=== PATIENT | female | born 1940 | race African-American/Black ===

== ENCOUNTER 2019-08-11 05:36 | Observation (INO) | payer MEDICARE, OTHER ==
[2019-08-07 13:02] LABS: BASOPHILS % 0.4 % (0.0-1.0); EOSINOPHILS # (AUTO) 0.2 (0.0-0.4); EOSINOPHILS % 4.9 % (0.0-6.0); HEMATOCRIT 39.9 % (34.2-44.1); LYMPHOCYTES # (AUTO) 1.8 (1.0-3.2); LYMPHOCYTES % 36.1 % (18.0-39.1); MEAN CORPUSCULAR HEMOGLOBIN 29.7 pg (28-32); MEAN CORPUSCULAR HGB CONC 32.6 g/dL (31-35); MEAN CORPUSCULAR VOLUME 91.3 fL (81-99); MONOCYTES # (AUTO) 0.5 (0.2-0.8); MONOCYTES % 10.3 % (4.4-11.3); NEUTROPHILS # (AUTO) 2.3 (2.1-6.9); NEUTROPHILS % 48.1 % (38.7-80.0); PLATELET COUNT 248 x10e3/uL (140-360); RED BLOOD COUNT 4.37 x10e6/uL (3.6-5.1); RED CELL DISTRIBUTION WIDTH 12.9 % (11.7-14.4)
[2019-08-07 13:21] LABS: ALANINE AMINOTRANSFERASE 17 IU/L (0-55); ALBUMIN 3.8 g/dL (3.5-5.0); ALBUMIN/GLOBULIN RATIO 1.1 (0.8-2.0); ALKALINE PHOSPHATASE 79 IU/L (40-150); ANION GAP 10.8 mmol/L (8-16); BLOOD UREA NITROGEN 21 mg/dL (7-26); BUN/CREATININE RATIO 26 (6-25); CALCIUM 9.6 mg/dL (8.4-10.2); CARBON DIOXIDE 25 mmol/L (22-29); CHLORIDE 108 mmol/L (98-107); EST GLOMERULAR FILTRATION RATE > 60 ML/MIN (60-); GLUCOSE 76 mg/dL (74-118); POTASSIUM 3.8 mmol/L (3.5-5.1); SODIUM 140 mmol/L (136-145)
--- NOTE | 2019-08-07 14:00 | Diagnostic Imaging Report ---
X-ray chest PA lateral Comparison: None History: Preop Findings: Cardiomediastinal silhouettes are normal. Lung aguila are normal. There is no pleural effusion or pneumothorax. Visualized skeletal structures are grossly unremarkable. Upper abdomen and other extrathoracic soft tissues unremarkable. Impression: No acute cardiopulmonary disease. Signed by: Gigi De Santiago MD on 08/07/2019 1:56 PM
[~2019-08-11] VITALS: Ht 165.1 cm; Wt 69.4 kg
[2019-08-11] MEDS ORDERED: CEFAZOLIN SOD 1 GM/NS 50ML 100 ML IV ONE (05:57)
[2019-08-11] MEDS ORDERED: ESTROGENS CONJUGATED VAGINAL CR 45 GM TUBE PV ONE (07:32)
[2019-08-11] MEDS ORDERED: BUPIVACAINE 0.25%/EPI 30ML SDV INJ ONE (07:35)
[2019-08-11] MEDS ORDERED: SUGAMMADEX SODIUM 200 MG/2 ML VIAL IV ONE (09:11)
[2019-08-11] MEDS ORDERED: FENTANYL CITRATE/PF 100MCG/2 ML INJ ONE (10:10)
[2019-08-11] MEDS ORDERED: BISACODYL 5 MG TAB EC PO PRN (10:30)
[2019-08-11] MEDS ORDERED: MEPERIDINE HCL INJ 25 MG/ML VIAL IV PRN (10:30)
[2019-08-11] MEDS ORDERED: DIPHENHYDRAMINE HCL 25 MG CAP PO PRN (10:30)
[2019-08-11] MEDS ORDERED: ACETAMINOPHEN 325 MG TAB PO PRN (10:30)
[2019-08-11] MEDS ORDERED: SIMETHICONE 80 MG CHEW PO PRN (10:30)
[2019-08-11] MEDS ORDERED: PROMETHAZINE HCL (IM) 25 MG/ML VIAL IM PRN (10:30)
[2019-08-11] MEDS ORDERED: BISACODYL 10 MG SUPP PR PRN (10:30)
[2019-08-11 11:01] VITALS: BP 126/67
--- NOTE | 2019-08-11 11:01 | NUR ---
Patient arrived to the unit from recovery @ 1101 via stretcher. Patient in stable condition, no s/s of distress noted. Daughter at bedside. Fuentes 16Fr draining pale yellow urine to the bag. IV fluids infusing, Site asymptomatic and patent. Dermabond to the lower labia vaginal packing in place. Bed in lowest position and locked. Call light within reach.
--- OUTSIDE RECORDS SUMMARY | 2019-08-11 11:04 | XMS REPORT | Continuity of Care Document ---
Author Author [facility] t Organization [facility] Address [address] [place] [address] Phone Unavailable Care Team Providers Care Vocational Rehabilitation Counselor Name Role Phone EDNA BORREGO Unavailable Payers Payer Name Policy Type Policy Number Effective Date Expiration Date S ource Problems This patient has no known problems. Allergies, Adverse Reactions, Alerts Allergy Name Allergy Type Status Severity Reaction(s) Onset Date Inacti ve Date Treating Clinician Comments Source No Known Allergies DA Active U 2014-06-23 00:00:00 [facility] Medications This patient has no known medications. Procedures This patient has no known procedures. Results Test Description Test Time Test Comments Results Result Comments Source CHEST 2 VIEWS 2019-08-07 13:56:00 [facility] [address] [place], [place] [address] Patient Name: ARTHUR MACKENZIE MR #: [id number] : 1940 Age/Sex: 79/F Req #: [id number] Adm Physician: Ordered by: EDNA BORREGO MD Report #: [id number] Location: OR Room/Bed: Procedure: [id number] DX/CHEST 2 VIEWS Exam Date: 08/07/19 Exam Time: 1140 REPORT STATUS: Signed X-ray chest PA lateral Comparison: None History: Preop Findings: Cardiomediastinal silhouettes are normal. Lung aguila are normal. There is no pleural effusion or pneumothorax. Visualized skeletal structures are grossly unremarkable. Upper abdomen and ot her extrathoracic soft tissues unremarkable. Impression: No acute cardiopulmonary disease. Signed by: Maritza Patel MD on 08/07/2019 1:56 PM Dictated By: MARITZA PATEL MD [id number] Transcribed By: AUDREY on 08/07/19 1356 COPY TO: EDNA BORREGO MD
[2019-08-11 11:12] VITALS: BP 126/67
[2019-08-11 11:33] VITALS: BP 126/67
[2019-08-11] MEDS: LACTATED RINGER'S 1,000 ML IV SCH ×2 (13:06→22:10)
[2019-08-11] MEDS ORDERED: LABETALOL HCL 5 MG/ML 20ML VIAL ONE (14:20)
[2019-08-11] MEDS ORDERED: ACETAMINOPHEN 1000 MG/100 ML IV ONE (14:20)
[2019-08-11] MEDS ORDERED: ETOMIDATE 2 MG/ML 10 ML INJ IV ONE (14:20)
[2019-08-11] MEDS ORDERED: SEVOFLURANE INHAL SOLN 250 ML PEN BTL ONE (14:20)
[2019-08-11] MEDS ORDERED: ONDANSETRON HCL INJ 2MG/ML 2ML 2 MG/ML VIAL ONE (14:20)
[2019-08-11] MEDS ORDERED: PROPOFOL IV EMULSION 10 MG/ML 20 ML VIAL ONE (14:20)
[2019-08-11] MEDS ORDERED: LIDOCAINE HCL 2% LOCAL INJ 5 ML SDV VIAL INJ ONE (14:20)
[2019-08-11] MEDS ORDERED: DEXAMETHASONE SOD PHOS INJ 4 MG/ML VIAL ONE (14:20)
--- NOTE | 2019-08-11 15:09 | Operative Report ---
DATE OF PROCEDURE: SURGEON: Chely Denise MD PREOPERATIVE DIAGNOSIS: Uterovaginal prolapse. POSTOPERATIVE DIAGNOSIS: Uterovaginal prolapse. PROCEDURES: Anterior repair, posterior repair, sacrospinous colpopexy, transobturator tape and cystoscopy. STATION HELPER: Dr. Higgins. COMPLICATIONS: None. ESTIMATED BLOOD LOSS: 20 mL. DESCRIPTION OF PROCEDURE: The patient was taken to the OR. General anesthesia was induced. She was prepped and draped in a normal sterile fashion, placed in dorsal lithotomy position. Examination under anesthesia revealed prolapse of the vagina and the vaginal apex. There was no uterus felt under examination. Two Allis clamps applied at the vaginal apex and a transverse skin incision was made with a scalpel and the bladder was dissected off the vagina using Metzenbaum scissors and the anterior wall of the vagina was opened with the same instrument. Two flaps of vagina dissected off underlying muscles using both sharp and blunt dissection. Following this, the bladder was dissected off the vagina using both Metzenbaum scissors and gentle pushes of index finger over swap of Ray-Khang wrapped on the index finger. Following this, pelvic fascia was pierced with the index fingers, ischial spine and sacrospinous was palpated and a Vicryl suture on the Capio needle nunez was applied on the sacrospinous ligament and the other end was brought outside the wound. The same was repeated on the other side of the pelvis and the other sutures was also brought out from the hitched to the vaginal apex. The pubocervical ligaments on each side were approximated using Vicryl 0 sutures, excess vaginal skin was trimmed off using with curved Flores scissors. The vagina was closed with interlocking stitches of Vicryl 0. Following this, the correct procedure was performed with two Allis clamps applied to the mucocutaneous junction about 1 cm from the fourchette on each side. The mucocutaneous junction between the two Allis clamp was excised using curved Flores scissors. The vagina was dissected off the perineum and the posterior wall using Metzenbaum scissors and opened in the midline. Two flaps of vagina dissected off underlying muscles using both sharp and blunt dissection. A Vicryl sutures were used to approximate the levator ani. Excess vaginal skin was trimmed off using curved Flores scissors and the vagina was closed with Vicryl 2-0 sutures. Attention was made to the transobturator tape and Fuentes catheter was placed inside the bladder to florinda the UVJ. The vagina anteriorly between the two Allis clamps at the UVJ and the external urethral meatus was injected with Marcaine with epinephrine 0.25% about 10 mL. The vagina was opened at the level of the mid urethra and the vagina was dissected off the urethra using Metzenbaum scissors using the push spread technique towards the inferior pubic ramus. Stab wounds were made in each side of the pelvis at the level of the external urethral meatus in the intercrural line and using the [employer] the trocar was inserted into the entry points, the tip was felt with the index finger just below the inferior pubic ramus and followed to the outside of the wound. Transobturator tape was applied on the trocar, and the trocar was withdrawn. The same was repeated on the other side and a TOT was laid down flat at the level of the mid urethra. The plastic cover was removed and cystoscopy was performed, showed normal bladder and urethra. The vagina was closed with interlocking stitches of Vicryl 0 and excess tape was excised at the entry points, and the entry points were approximated using Dermabond. Vaginal pack and Fuentes catheter were inserted again inside the bladder. The patient tolerated the procedure well. Lap, instruments, and needle counts were correct x2 at the end of the procedure. Chely Denise MD DD/AG /[id number]
[2019-08-11] MEDS: HYDROCODONE/APAP 5MG-325MG TAB PO PRN (16:07)
[2019-08-11 16:35] VITALS: BP 114/85
--- NOTE | 2019-08-11 18:42 | NUR ---
Removed the vaginal packing the patient tolerated removal no s/s of bleeding noted. no pain voiced.
--- NOTE | 2019-08-11 19:15 | NUR ---
Completed bedside report and rounding with oncoming night nurse. Patient in stable condition, no s/s of distress noted. No pain voiced. Fuentes applied draining clear yellow urine in drainage bag. IV fluids infusing, site asymptomatic and patent, dressing C/D/I. Bed in lowest position and locked. Call light within reach.
[2019-08-11 20:00] VITALS: BP 132/87
[2019-08-12] VITALS: BP 114/52
[2019-08-12] MEDS: LACTATED RINGER'S 1,000 ML IV SCH ×2 (03:11→13:59)
[2019-08-12 04:00] VITALS: BP 121/56
--- NOTE | 2019-08-12 05:20 | NUR ---
Fuentes removed, 150 cc yellow urine in bag at time of removal. Patient tolerated well. Patient due to void. Will continue to monitor.
[2019-08-12 05:44] LABS: HEMOGLOBIN 11.1 g/dL (12.0-16.0)
--- NOTE | 2019-08-12 07:00 | NUR ---
Received bedside shift report from off going night nurse. Patient in stable condition, no s/s of distress noted. no pain voiced. IV fluids infusing, site asymptomatic and patent, dressing C/D/I. Bed in lowest position and locked. Call light within reach.
[2019-08-12] MEDS: HYDROCODONE/APAP 5MG-325MG TAB PO PRN (07:05)
--- NOTE | 2019-08-12 07:07 | NUR ---
Bedside report and walking rounds completed with on coming nurse. Patient in bed with call light within reach. No issues or concerns noted.
[2019-08-12 07:51] VITALS: BP 119/65
[2019-08-12 07:52] VITALS: BP 119/65
[2019-08-12 12:04] VITALS: BP 118/48
[2019-08-12 15:59] VITALS: BP 137/55
--- NOTE | 2019-08-12 16:30 | NUR ---
Post voiding Bladder was scanned to showed 396ml of urine noted in the bladder. Notified Dr. Denise about assessment. Received orders to reinsert the Fuentes. Fuentes reinserted draining 360ml of urine into the drainage bag.
--- NOTE | 2019-08-12 16:31 | NUR ---
Received order form from Dr. Lundberg for PleurX drainage kit for [facility]. Spoke with pt's daughter Jonna at bedside. Agrees to use [facility]. Choice letter signed and placed in chart. Copy to daughter. Order form faxed to [phone] / Addendum: 08/12/19 at 1636 by Rufina Rees CM WRONG CHART!!!
--- NOTE | 2019-08-12 16:41 | NUR ---
Received order for home health. Spoke to pt's daughter Ayad at bedside. States pt had home health previously but she cannot remember the name of the company. States she was agreeable to home health and is fine with us using any company in network with pt's insurance. Choice letter signed for [facility] and [facility]. Signed copy placed in chart. Copy to pt's daughter with each company's contact information. Informed daughter that referral will be faxed to [facility] and asked that she call them if she does not hear from them within 24 hrs of discharge. She verbalized understanding Referral faxed to [facility] at [phone] / Valery Escudero with [facility] was informed of referral.
[2019-08-12] MEDS ORDERED: TYLENOL WITH C1 EACH PO (18:16)
[2019-08-12] MEDS ORDERED: COLACE100 MG PO (18:17)
--- NOTE | 2019-08-12 19:19 | NUR ---
Patient discharged home with home health. Patient off the unit @ 1928 via wheelchair accompanied to the lobby by RN. Patient in stable condition, no s/s of distress noted. No pain voiced. IV access removed with tip intact. Discharged with Fuentes per home health to remove on 08/17/2019. All personal items taken with the patient. Discharge teaching and instruction given to the patient and daughter. Patient and daughter verbalized understanding. Discharge paperwork and prescriptions given to the daughter. Educated the daughter on how to change the Fuentes drainage bag.
== END 2019-08-12 19:30 | disposition home health service (06) ==
LOC: OR 05:36 → PACU V 10:28 → MED/SURG2 11:16
PROVIDERS: ADMIT Obstetrics & Gynecology; ATTEND Obstetrics & Gynecology
DX: N81.89 Other female genital prolapse (principal); N81.4 Uterovaginal prolapse, unspecified; R32 Unspecified urinary incontinence; Z01.812 Encounter for preprocedural laboratory examination; Z01.811 Encounter for preprocedural respiratory examination; Z01.818 Encounter for other preprocedural examination; Z11.59 Encounter for screening for other viral diseases; Z88.7 Allergy status to serum and vaccine
CPT/HCPCS: 36415 ×2; 57260; 58260; 71046; 80053; 85014; 85018; 85025; 86850; 86900; 87635; 93005; 97116; 97162; 97530; G0378 ×2; J0131; J0690; J1100; J2001; J2175; J2405; J2704; J3010; J3490; J7121 ×2